=== PATIENT | female | born 1990 | race Caucasian/White ===

== ENCOUNTER 2017-01-03 18:28 | Emergency (ER) | payer MEDICAID, OTHER ==
[~2017-01-03] VITALS: Ht 154.9 cm; Wt 76.0 kg
[~2017-01-03 18:28] MED LIST: ACET325T14 PO; DOCO200C3 PO; IBUP-1222 PO; OXYC-302 PO
[2017-01-03 19:15] LABS: HEMATOCRIT 42.1 % (34.6-47.8); HEMOGLOBIN 14.2 g/dL (11.7-16.4); WHITE BLOOD COUNT 10.8 x10^3/uL (3.4-10)
[2017-01-03 19:44] LABS: BLOOD UREA NITROGEN 13 mg/dL (7-18)
[2017-01-03 21:25] VITALS: BP 107/77
== END 2017-01-03 21:28 | disposition home or self-care (01) ==
LOC: ED 21:15
DX: R00.2 Palpitations (principal); R07.89 Other chest pain; R53.1 Weakness
CPT/HCPCS: 36415; 80048; 82040; 84436; 84443; 84703; 85025; 93005; 99285

== ENCOUNTER → 2017-07-12 | Outpatient (CLI) | payer OTHER | END | disposition home or self-care (01) | LOC: CVU 14:39 | PROVIDERS: ATTEND Internal Medicine Cardiovascular Disease | DX: I07.1 Rheumatic tricuspid insufficiency (principal) | CPT/HCPCS: 93306 ==

== ENCOUNTER → 2020-08-01 | Outpatient (CLI) | payer MEDICAID ==
[~2020-08-01] MED LIST changes: -OXYC-302 PO; +OXYC1TAB14 PO
== END | disposition home or self-care (01) ==
LOC: CVU 15:33
PROVIDERS: ATTEND Nurse Practitioner Family
DX: I36.1 Nonrheumatic tricuspid (valve) insufficiency (principal); R07.89 Other chest pain; I10 Essential (primary) hypertension
CPT/HCPCS: 93306; 93356